=== PATIENT | female | born 1955 | race Caucasian/White ===

== ENCOUNTER 2019-01-03 13:53 | Emergency (ER) | payer OTHER, MEDICARE ==
[2019-01-03 14:12] VITALS: BP 140/94
[2019-01-03] MEDS ORDERED: Escitalopram 10 MG Tab PO ONE ×2 (15:02→15:03)
[2019-01-03] MEDS ORDERED: LORazepam 0.5 MG Tab PO ONE (15:02)
--- NOTE | 2019-01-03 15:09 | EDM.PDOC ---
ED HPI GENERAL MEDICAL PROBLEM - General Chief Complaint: General Stated Complaint: NEEDS A MED REFILLED? Time Seen by Provider: 01/03/19 14:51 Source of Information: Reports: Patient, Family (dtr) History Limitations: Reports: No Limitations - History of Present Illness INITIAL COMMENTS - FREE TEXT/NARRATIVE: Patient presents with anxiety requesting dose of Lexapro. She ran out of her Lexapro 3 days ago and tried to fill yesterday. Since the refills were she left the Rx and intended to pick it up on her way home from work but was too late so now won't be able to waste picker until Saturday (Saturday is holiday). She also has used occasional Lorazepam but it hasn't been filled since May per EMR. - Related Data Allergies Allergy/AdvReac Type Severity Reaction Status Date / Time No Known Drug Allergies Allergy Cannot Verified 11/11/15 14:56 Remember Home Meds: Home Meds Aspirin [Adult Low Dose Aspirin EC] 81 mg PO BEDTIME 01/03/19 [History] Escitalopram [Lexapro] 20 mg PO BEDTIME 01/03/19 [History] Ezetimibe [Zetia] 10 mg PO BEDTIME 01/03/19 [History] Fenofibrate Nanocrystallized [Fenofibrate] 160 mg PO BEDTIME 01/03/19 [History] Ibuprofen/Diphenhydramine Cit [Advil Pm Caplet] 4 each PO BEDTIME 01/03/19 [ History] Metoprolol Succinate [Toprol XL 50mg] 50 mg PO BEDTIME 01/03/19 [History] amLODIPine Besylate [Amlodipine Besylate] 10 mg PO BEDTIME 01/03/19 [History] Past Medical History HEENT History: Reports: Impaired Vision Cardiovascular History: Reports: High Cholesterol, Hypertension - Past Surgical History GI Surgical History: Reports: Cholecystectomy Female Surgical History: Reports: Hysterectomy Social & Family History - Tobacco Use Smoking Status *Q: Current Every Day Smoker Years of Tobacco use: 50 Packs/Tins Daily: 0.5 Second Hand Smoke Exposure: No - Caffeine Use Caffeine Use: Reports: Coffee, Soda - Alcohol Use Days Per Week of Alcohol Use: 4 Number of Drinks Per Day: 2 Total Drinks Per Week: 8 - Recreational Drug Use Recreational Drug Use: No - Living Situation & Occupation Living situation: Reports: with Family Occupation: Employed ED ROS GENERAL - Review of Systems Review Of Systems: See Below Constitutional: Denies: Fever, Weakness HEENT: Denies: Ear Pain, Vision Change Respiratory: Denies: Shortness of Breath, Cough Cardiovascular: Denies: Chest Pain, Lightheadedness, Syncope Endocrine: Reports: No Symptoms GI/Abdominal: Reports: No Symptoms : Denies: Dysuria, Urgency Musculoskeletal: Reports: No Symptoms Skin: Reports: No Symptoms Neurological: Denies: Confusion, Headache, Seizure, Syncope, Trouble Speaking, Difficulty Walking Psychiatric: Reports: Anxiety. Denies: Confusion ED EXAM, GENERAL - Physical Exam Exam: See Below Exam Limited By: No Limitations General Appearance: Alert, WD/WN, No Apparent Distress, Anxious Eye Exam: Bilateral Eye: EOMI, Normal Inspection, PERRL Ears: Normal External Exam, Hearing Grossly Normal Nose: Normal Inspection, No Blood Throat/Mouth: Normal Inspection, Normal Lips, Normal Voice, No Airway Compromise Head: Atraumatic, Normocephalic Neck: Normal Inspection, Full Range of Motion Respiratory/Chest: No Respiratory Distress, Lungs Clear, Normal Breath Sounds Cardiovascular: Regular Rate, Rhythm (slight solo), No Murmur GI/Abdominal: Normal Bowel Sounds, Soft, Non-Tender, No Organomegaly, No Distention Back Exam: Normal Inspection, Full Range of Motion. No: CVA Tenderness (L), CVA Tenderness (R) Extremities: Normal Inspection, Normal Range of Motion Neurological: Alert, Oriented, CN II-XII Intact, Normal Cognition, No Motor/ Sensory Deficits Psychiatric: Normal Affect, Anxious Skin Exam: Warm, Dry, Intact, Normal Color, No Rash Course - Vital Signs Last Recorded V/S: Last Vital Signs Temp 97.9 F 01/03/19 14:00 Pulse 52 L 01/03/19 14:00 Resp 20 01/03/19 14:00 BP 140/94 H 01/03/19 14:00 Pulse Ox 96 01/03/19 14:00 - Orders/Labs/Meds Orders: Active Orders 24 hr Category Date Time Status Escitalopram [Lexapro] Med 01/03/19 15:03 Once 40 mg PO ONETIME ONE Meds: Medications Discontinued Medications Generic Name Dose Route Start Last Admin Trade Name Freq PRN Reason Stop Dose Admin Escitalopram Oxalate 20 mg 01/03/19 15:02 Lexapro PO 01/03/19 15:03 ONETIME ONE Lorazepam 0.5 mg 01/03/19 15:02 Ativan PO 01/03/19 15:03 ONETIME ONE - Re-Assessments/Exams Free Text/Narrative Re-Assessment/Exam: 01/03/19 15:[address] Unger to confirm and after checking Epic, confirms story as we were told (90-day supply is waiting for her at the pharmacy). Patient saw Wiley Powell 12 days ago in clinic for routine checkup. I discussed options with patient and since she has only used Lorazepam rarely and not recently, will give a dose of that along with her usual dose of Lexapro and two additional doses until she can waste picker her Rx on Saturday. 01/03/19 15:28 Medications are given. Patient is stable. She doesn't want to wait around for the anxiety to resolve as she is hungry. She is discharged to home with her adult daughter. Departure - Departure Time of Disposition: 15:22 Disposition: Home, Self-Care 01 Condition: Good Clinical Impression: Chronic anxiety, Depressive disorder - Discharge Information Referrals: Wiley Powell, COMPUTER ANALYST [Primary Care Provider] - Additional Instructions: 1. Take your medications as directed. 2. Follow up with your PCP if not resolving as expected. 3. If any problems follow up with PCP or return to ER. - My Orders Last 24 Hours: My Active Orders 01/03/19 15:03 Escitalopram [Lexapro] 40 mg PO ONETIME ONE - Assessment/Plan Last 24 Hours: My Active Orders 01/03/19 15:03 Escitalopram [Lexapro] 40 mg PO ONETIME ONE
== END 2019-01-03 15:30 | disposition home or self-care (01) ==
LOC: KA.ED 13:53
DX: F41.9 Anxiety disorder, unspecified (principal); F32.9 Major depressive disorder, single episode, unspecified; I10 Essential (primary) hypertension; F17.210 Nicotine dependence, cigarettes, uncomplicated; Z79.82 Long term (current) use of aspirin; Z79.899 Other long term (current) drug therapy
CPT/HCPCS: 99281; A9270-GY